=== PATIENT | male | born 1970 | race Caucasian/White ===

== ENCOUNTER 2017-05-11 18:21 | Emergency (ER) | payer OTHER ==
--- NOTE | 2017-05-11 18:45 | ER Document Report ---
ED Medical Screen (RME) - General Chief Complaint: Numbness of Face Stated Complaint: FACIAL NUMBNESS Time Seen by Provider: 05/11/17 18:45 Mode of Arrival: Ambulatory Information source: Patient Notes: 46-year-old man presenting to the ER with numbness since waking this morning. He does note that for the previous week and a half he was having intermittent tingling sensation in the right side of his face. He does have a family history for coronary artery disease. He does have a history of dyslipidemia and is on a cholesterol medicine. He denies smoking. - Related Data Allergies/Adverse Reactions: No Known Allergies Allergy (Unverified 05/11/17 18:24) Past Medical History - Past Medical History Cardiac Medical History: Reports: Hx Hypercholesterolemia Renal/ Medical History: Denies: Hx Peritoneal Dialysis GI Medical History: Reports: Hx Hiatal Hernia Physical Exam - Vital signs Vitals: Temp Pulse Resp BP Pulse Ox 98.4 F 83 16 145/96 H 97 05/11/17 18:26 05/11/17 18:26 05/11/17 18:26 05/11/17 18:26 05/11/17 18:26 Course - Vital Signs Vital signs: Temp Pulse Resp BP Pulse Ox 98.4 F 83 16 145/96 H 97 05/11/17 18:26 05/11/17 18:26 05/11/17 18:26 05/11/17 18:26 05/11/17 18:26 - Laboratory Result Diagrams: 05/11/17 18:52 05/11/17 18:52 Laboratory results interpreted by me: 05/11/17 18:52 BUN 24 H Doctor's Discharge - Discharge Clinical Impression: Facial numbness, Dental infection Condition: Stable Disposition: HOME, SELF-CARE Instructions: Dental Infection or Abscess ([facility]) Prescriptions: Amoxicillin 875 mg PO BID #20 tablet Referrals: SOLO MILES MD [NO LOCAL MD] - Follow up tomorrow
[2017-05-11 19:09] LABS: ABSOLUTE BASOPHILS # (AUTO) 0.1 10^3/uL (0.0-0.2); ABSOLUTE EOSINOPHILS # (AUTO) 0.2 10^3/uL (0.0-0.6); ABSOLUTE LYMPHOCYTES (AUTO) 2.8 10^3/uL (0.5-4.7); ABSOLUTE MONOCYTES (AUTO) 0.7 10^3/uL (0.1-1.4); ABSOLUTE NEUT (AUTO) 6.5 10^3/uL (1.7-8.2); BASOPHILS % (AUTO) 0.7 % (0-2); EOSINOPHILS % (AUTO) 2.1 % (0-6); HEMATOCRIT 45.1 % (37.9-51.0); HEMOGLOBIN 15.7 g/dL (13.5-17.0); LYMPHOCYTES % (AUTO) 26.8 % (13-45); MEAN CORPUSCULAR HEMOGLOBIN 31.3 pg (27.0-33.4); MEAN CORPUSCULAR HGB CONC 34.8 g/dL (32.0-36.0); MEAN CORPUSCULAR VOLUME 90 fl (80-97); MONOCYTES % (AUTO) 7.2 % (3-13); PLATELET COUNT 301 10^3/uL (150-450); RED BLOOD COUNT 5.02 10^6/uL (4.35-5.55); SEGMENTED NEUTROPHILS % (AUTO) 63.2 % (42-78); TOTAL CELLS COUNTED % (AUTO) 100 %; WHITE BLOOD COUNT 10.3 10^3/uL (4.0-10.5)
[2017-05-11 19:27] LABS: ALANINE AMINOTRANSFERASE 40 U/L (21-72); ALBUMIN 4.5 g/dL (3.5-5.0); ALKALINE PHOSPHATASE 70 U/L (38-126); ANION GAP 10 (5-19); ASPARTATE AMINO TRANSFERASE 19 U/L (17-59); BILIRUBIN,DIRECT 0.3 mg/dL (0.0-0.4); BILIRUBIN,TOTAL 0.4 mg/dL (0.2-1.3); BLOOD UREA NITROGEN 24 mg/dL (7-20); CALCIUM 10.2 mg/dL (8.4-10.2); CARBON DIOXIDE 28 mmol/L (22-30); CHLORIDE 106 mmol/L (98-107); CREATINE KINASE 85 U/L (55-170); GLUCOSE 86 mg/dL (75-110); POTASSIUM 4.2 mmol/L (3.6-5.0); SODIUM 144.3 mmol/L (137-145); TOTAL PROTEIN 7.4 g/dL (6.3-8.2)
--- NOTE | 2017-05-11 19:27 | RADIOLOGY REPORT (SQ) ---
EXAM DESCRIPTION: CHEST PA/LAT COMPLETED DATE/TIME: 05/11/2017 7:17 pm REASON FOR STUDY: facial numbness COMPARISON: None. EXAM PARAMETERS: NUMBER OF VIEWS: two views TECHNIQUE: Digital Frontal and Lateral radiographic views of the chest acquired. RADIATION DOSE: NA LIMITATIONS: none FINDINGS: LUNGS AND PLEURA: No opacities, masses or pneumothorax. No pleural effusion. MEDIASTINUM AND HILAR STRUCTURES: No masses or contour abnormalities. HEART AND VASCULAR STRUCTURES: Heart size is borderline. There is no evidence of failure. BONES: No acute findings. HARDWARE: None in the chest. OTHER: No other significant finding. IMPRESSION: Borderline cardiomegaly without failure. TECHNICAL DOCUMENTATION: JOB ID: [id number] [employer]- All Rights Reserved Reading location - IP/workstation name: [email or web address]
--- NOTE | 2017-05-11 19:31 | RADIOLOGY REPORT (SQ) ---
EXAM DESCRIPTION: CT HEAD WITHOUT COMPLETED DATE/TIME: 05/11/2017 7:23 pm REASON FOR STUDY: right facial numbness COMPARISON: None. TECHNIQUE: Axial images acquired through the brain without intravenous contrast. Images reviewed wi th bone, brain and subdural windows. Images stored on PACS. All CT scanners at this facility use dose modulation, iterative reconstruction, and/or weight based d osing when appropriate to reduce radiation dose to as low as reasonably achievable (ALARA). [facility]: Dose Right [facility]: CareDose [facility]: Dose Right [facility]: Teradose 4D [facility]: Smart [employer] RADIATION DOSE: CT Rad equipment meets quality standard of care and radiation dose reduction techniq ues were employed. CTDIvol: 64.6 mGy. DLP: 1163 mGy-cm. mGy. LIMITATIONS: None. FINDINGS: VENTRICLES: Normal size and contour. CEREBRUM: No masses. No hemorrhage. No midline shift. No evidence for acute infarction. Normal gra y/white matter differentiation. No areas of low density in the white matter. CEREBELLUM: No masses. No hemorrhage. No alteration of density. No evidence for acute infarction. EXTRAAXIAL SPACES: No fluid collections. No masses. ORBITS AND GLOBE: No intra- or extraconal masses. Normal contour of globe without masses. CALVARIUM: No fracture. PARANASAL SINUSES: No fluid or mucosal thickening. SOFT TISSUES: No mass or hematoma. OTHER: No other significant finding. IMPRESSION: NORMAL BRAIN CT WITHOUT CONTRAST. EVIDENCE OF ACUTE STROKE: NO. COMMENT: Quality ID # [id number]: Final reports with documentation of one or more dose reduction techniques (e.g., Automated exposure control, adjustment of the mA and/or kV according to patient size, use of iterative reconstruction technique) TECHNICAL DOCUMENTATION: JOB ID: [id number] [employer]- All Rights Reserved Reading location - IP/workstation name: [email or web address]
[2017-05-11 19:39] LABS: CREATINE KINASE MB 0.71 ng/mL (<4.55)
[2017-05-11 19:41] LABS: TROPONIN I < 0.012 ng/mL
--- NOTE | 2017-05-11 20:08 | ER Document Report ---
ED General - General Chief Complaint: Numbness of Face Stated Complaint: FACIAL NUMBNESS Time Seen by Provider: 05/11/17 18:45 Mode of Arrival: Ambulatory Information source: Patient Notes: 46-year-old male presents with complaints of odd sensation of his right cheek. Patient notes symptoms have been ongoing for the past week intermittently and then had tingling sensation today. Patient denies any other neurological deficits denies any numbness weakness anywhere else. He denies headache, patient does note that he has a tooth of the right upper that is supposed to have a Placed in the root canal. - HPI Onset: Last week Onset/Duration: Intermittent Quality of pain: No pain Severity: Mild Pain Level: Denies Associated symptoms: Other Exacerbated by: Denies Relieved by: Denies Similar symptoms previously: No Recently seen / treated by doctor: Yes - Patient sent in by [facility] - Related Data Allergies/Adverse Reactions: No Known Allergies Allergy (Unverified 05/11/17 18:24) Past Medical History - General Information source: Patient - Social History Smoking Status: Never Smoker Cigarette use (# per day): No Chew tobacco use (# tins/day): No Smoking Education Provided: No Family History: Reviewed & Not Pertinent Patient has suicidal ideation: No Patient has homicidal ideation: No - Past Medical History Cardiac Medical History: Reports: Hx Hypercholesterolemia Renal/ Medical History: Denies: Hx Peritoneal Dialysis GI Medical History: Reports: Hx Hiatal Hernia Review of Systems - Review of Systems Notes: REVIEW OF SYSTEMS: CONSTITUTIONAL : Denies fever, chills, or sweats. Denies recent illness. EENT: Denies eye, ear, throat, or mouth pain or symptoms. Denies nasal or sinus congestion or discharge. Denies throat, tongue, or mouth swelling or difficulty swallowing. CARDIOVASCULAR: Denies chest pain. Denies palpitations or racing or irregular heart beat. Denies ankle edema. RESPIRATORY: Denies cough, cold, or chest congestion. Denies shortness of breath, difficulty breathing, or wheezing. GASTROINTESTINAL: Denies abdominal pain or distention. Denies nausea, vomiting , or diarrhea. Denies blood in vomitus, stools, or per rectum. Denies black, tarry stools. Denies constipation. GENITOURINARY: Denies difficulty urinating, painful urination, burning, frequency, blood in urine, or discharge. MUSCULOSKELETAL: Denies back or neck pain or stiffness. Denies joint pain or swelling. SKIN: Denies rash, lesions or sores. HEMATOLOGIC : Denies easy bruising or bleeding. LYMPHATIC: Denies swollen, enlarged glands. NEUROLOGICAL: Right cheek paresthesia PSYCHIATRIC: Denies anxiety or stress. Denies depression, suicidal ideation, or homicidal ideation. ALL OTHER SYSTEMS REVIEWED AND NEGATIVE. Dictation was performed using [employer] voice recognition software PHYSICAL EXAMINATION: GENERAL: Well-appearing, well-nourished and in no acute distress. HEAD: Atraumatic, normocephalic. EYES: Pupils equal round and reactive to light, extraocular movements intact, sclera anicteric, conjunctiva are normal. ENT: Poor dentition teeth #3 4 5 NECK: Normal range of motion, supple without lymphadenopathy LUNGS: Breath sounds clear to auscultation bilaterally and equal. No wheezes rales or rhonchi. HEART: Regular rate and rhythm without murmurs ABDOMEN: Soft, nontender, nondistended abdomen. No guarding, no rebound. No masses appreciated. Musculoskeletal: Normal range of motion, no pitting or edema. No cyanosis. NEUROLOGICAL: Cranial nerves grossly intact. Normal speech, normal gait. Normal sensory, motor exams except for subjective paresthesia of the right cheek PSYCH: Normal mood, normal affect. SKIN: Warm, Dry, normal turgor, no rashes or lesions noted. Physical Exam - Vital signs Vitals: Temp Pulse Resp BP Pulse Ox 98.4 F 83 16 145/96 H 97 05/11/17 18:26 05/11/17 18:26 05/11/17 18:26 05/11/17 18:26 05/11/17 18:26 Course - Re-evaluation Re-evalutation: 05/11/17 23:[address] were performed, no Abnormality was noted, patient's presentation I believe is more consistent with nerve irritation given that his symptoms are specifically of the second branch of the trigeminal nerve, I have low suspicion for a specific clot that would cause this and it appears to be more likely due to a dental infection, nonetheless patient will be given neurology follow-up antibiotics and very strict return precautions After performing a Medical Screening Examination, I estimate there is LOW risk for a DEEP SPACE INFECTION (e.g., ABRAHAM'S ANGINA OR RETROPHARYNGEAL ABSCESS), MENINGITIS, INTRACRANIAL HEMORRHAGE, or AIRWAY COMPROMISE, thus I consider the discharge disposition reasonable. Also, there is no evidence or peritonitis, sepsis, or toxicity. I have reevaluated this patient multiple times and no significant life threatening changes are noted. The patient and I have discussed the diagnosis and risks, and we agree with discharging home with close follow-up with the understanding that symptoms and presentations can change. We also discussed returning to the Emergency Department immediately if new or worsening symptoms occur. We have discussed the symptoms which are most concerning (e.g., changing or worsening pain, trouble swallowing or breathing, neck stiffness or fever) that necessitate immediate return. - Vital Signs Vital signs: Temp Pulse Resp BP Pulse Ox 98.0 F 58 L 16 131/96 H 98 05/11/17 20:17 05/11/17 20:17 05/11/17 18:26 05/11/17 20:17 05/11/17 20:17 - Laboratory Result Diagrams: 05/11/17 18:52 05/11/17 18:52 Laboratory results interpreted by me: 05/11/17 18:52 BUN 24 H - Diagnostic Test Radiology reviewed: Image reviewed - no acute abnormality , report given to patient, Reports reviewed Discharge - Discharge Clinical Impression: Facial numbness, Dental infection Condition: Stable Disposition: HOME, SELF-CARE Instructions: Dental Infection or Abscess ([facility]) Prescriptions: Amoxicillin 875 mg PO BID #20 tablet Referrals: SOLO MILES MD [NO LOCAL MD] - Follow up tomorrow
[2017-05-11 20:21] VITALS: BP 131/96
--- NOTE | 2017-05-11 22:18 | EKG REPORT ---
SEVERITY:- OTHERWISE NORMAL ECG - SINUS ARRHYTHMIA, RATE 49-69 : Confirmed by: Corazon Bergman 11-May-2017 22:17:20
== END 2017-05-11 20:24 | disposition home or self-care (01) ==
LOC: ER 18:21
DX: K04.7 Periapical abscess without sinus (principal); R20.0 Anesthesia of skin; E78.00 Pure hypercholesterolemia, unspecified
CPT/HCPCS: 36415; 70450; 71046; 80053; 82550; 82553; 84484; 85025; 93005; 93010; 99285

== ENCOUNTER 2017-12-03 11:37 | Emergency (ER) | payer OTHER ==
--- NOTE | 2017-12-03 12:24 | ER Document Report ---
ED Medical Screen (RME) - General Chief Complaint: Abdominal Pain Stated Complaint: ABDOMINAL PAIN Time Seen by Provider: 12/03/17 12:23 Mode of Arrival: Wheelchair Information source: Patient - HPI Patient complains to provider of: abd pain Onset: This morning - pt with onset of diffuse abd pain starting this am. Last BM 2 days ago - Related Data Allergies/Adverse Reactions: morphine Adverse Reaction (Verified 12/03/17 12:19) Past Medical History - Past Medical History Cardiac Medical History: Reports: Hx Hypercholesterolemia Renal/ Medical History: Denies: Hx Peritoneal Dialysis GI Medical History: Reports: Hx Hiatal Hernia Physical Exam - Vital signs Vitals: Temp Pulse Resp BP Pulse Ox 98.4 F 69 18 129/88 H 96 12/03/17 12:12 12/03/17 12:12 12/03/17 12:12 12/03/17 12:12 12/03/17 12:12 Course - Vital Signs Vital signs: Temp Pulse Resp BP Pulse Ox 98.4 F 69 18 129/88 H 96 12/03/17 12:12 12/03/17 12:12 12/03/17 12:12 12/03/17 12:12 12/03/17 12:12
[2017-12-03 13:10] LABS: APPEARANCE,URINE CLOUDY; BILIRUBIN,URINE NEGATIVE (NEGATIVE); COLOR,URINE YELLOW; GLUCOSE, URINE NEGATIVE (NEGATIVE); KETONES,URINE NEGATIVE (NEGATIVE); LEUKOCYTE ESTERASE,URINE NEGATIVE (NEGATIVE); NITRITE,URINE NEGATIVE (NEGATIVE); PROTEIN,URINE 30 mg/dL (NEGATIVE); URINE SPECIFIC GRAVITY 1.017; UROBILINOGEN,URINE NEGATIVE mg/dL (<2.0)
[2017-12-03 13:22] LABS: ABSOLUTE LYMPHOCYTES (AUTO) 1.1 10^3/uL (0.5-4.7); ABSOLUTE MONOCYTES (AUTO) 0.6 10^3/uL (0.1-1.4); ABSOLUTE NEUT (AUTO) 11.5 10^3/uL (1.7-8.2); BASOPHILS % (AUTO) 0.3 % (0-2); EOSINOPHILS % (AUTO) 0.3 % (0-6); HEMATOCRIT 47.2 % (37.9-51.0); HEMOGLOBIN 16.1 g/dL (13.5-17.0); LYMPHOCYTES % (AUTO) 8.3 % (13-45); MEAN CORPUSCULAR HEMOGLOBIN 30.9 pg (27.0-33.4); MEAN CORPUSCULAR HGB CONC 34.1 g/dL (32.0-36.0); MEAN CORPUSCULAR VOLUME 91 fl (80-97); MONOCYTES % (AUTO) 4.6 % (3-13); PLATELET COUNT 296 10^3/uL (150-450); RED BLOOD COUNT 5.21 10^6/uL (4.35-5.55); RED CELL DISTRIBUTION WIDTH 13.4 % (11.5-14.0); SEGMENTED NEUTROPHILS % (AUTO) 86.5 % (42-78); TOTAL CELLS COUNTED % (AUTO) 100 %; WHITE BLOOD COUNT 13.3 10^3/uL (4.0-10.5)
[2017-12-03 13:46] LABS: ALANINE AMINOTRANSFERASE 33 U/L (21-72); ALBUMIN 4.7 g/dL (3.5-5.0); ALKALINE PHOSPHATASE 59 U/L (38-126); ANION GAP 10 (5-19); ASPARTATE AMINO TRANSFERASE 19 U/L (17-59); BILIRUBIN,DIRECT 0.2 mg/dL (0.0-0.4); BILIRUBIN,TOTAL 0.8 mg/dL (0.2-1.3); BLOOD UREA NITROGEN 20 mg/dL (7-20); CALCIUM 10.1 mg/dL (8.4-10.2); CARBON DIOXIDE 28 mmol/L (22-30); CHLORIDE 105 mmol/L (98-107); GLUCOSE 106 mg/dL (75-110); LIPASE 33.2 U/L (23-300); POTASSIUM 4.7 mmol/L (3.6-5.0); SODIUM 142.9 mmol/L (137-145); TOTAL PROTEIN 7.6 g/dL (6.3-8.2)
--- NOTE | 2017-12-03 14:42 | ER Document Report ---
ED GI/ - General Chief Complaint: Abdominal Pain Stated Complaint: ABDOMINAL PAIN Time Seen by Provider: 12/03/17 12:23 Mode of Arrival: Wheelchair Notes: 47-year-old male to the emergency department chief complaint of lower abdominal pain on and off for several days. Patient states that he has a hernia that he knows is there and has been present for quite some time. Easily reducible. Sometimes it is not easy to push him but today it is easy to push back in. Has intermittent constipation. Was seen at [facility] and sent here for further evaluation. Patient denies any fever, chills, sweats. Has not eaten all day and is hungry at this time. - HPI Patient complains to provider of: Abdominal pain - Related Data Allergies/Adverse Reactions: morphine Adverse Reaction (Verified 12/03/17 12:19) Past Medical History - General Information source: Patient - Social History Smoking Status: Never Smoker Chew tobacco use (# tins/day): No Frequency of alcohol use: Rare Drug Abuse: None Lives with: Family Family History: Reviewed & Not Pertinent Patient has suicidal ideation: No Patient has homicidal ideation: No - Past Medical History Cardiac Medical History: Reports: Hx Hypercholesterolemia, Hx Hypertension - borderline Pulmonary Medical History: Reports: Hx Asthma Renal/ Medical History: Denies: Hx Peritoneal Dialysis GI Medical History: Reports: Hx Hiatal Hernia Past Surgical History: Reports: Hx Abdominal Surgery - hernia repair, Hx Oral Surgery - tooth extraction Review of Systems - Review of Systems Notes: Constitutional: denies: Chills, Diaphoresis, Fever, Malaise, Weakness EENT: denies: Eye discharge, Blurred vision, Tearing, Double vision, Nose congestion, Nose discharge, Throat swelling, Mouth pain Cardiovascular: denies: Palpitations, Heart racing, Orthopnea, Dyspnea, Chest pain Respiratory: denies: Cough, Hurts to breathe, Wheezing, Shortness of breath Gastrointestinal: Complains of abdominal pain, constipation and some intermittent flank pain on occasions. Genitourinary: denies: Burning, Dysuria, Discharge, Frequency,. Does complain of some bilateral flank pain, Hematuria Musculoskeletal: denies: Joint pain, Joint swelling, Muscle pain, Muscle stiffness, back pain Hematologic/Lymphatic: denies: Anemia, Easy bleeding, Easy bruising, Blood clots Neurological/Psychological: denies: Confusion, Dementia, Depression, Loss of consciousness Skin: No lesions, no masses, no skin breakdown, no abscesses Physical Exam - Vital signs Vitals: Temp Pulse Resp BP Pulse Ox 98.4 F 69 18 129/88 H 96 12/03/17 12:12 12/03/17 12:12 12/03/17 12:12 12/03/17 12:12 12/03/17 12:12 Interpretation: Normal - General General appearance: Appears well, Alert - HEENT Head: Normocephalic, Atraumatic Eyes: Normal Pupils: PERRL - Respiratory Respiratory status: No respiratory distress Chest status: Nontender Breath sounds: Normal Chest palpation: Normal - Cardiovascular Rhythm: Regular Heart sounds: Normal auscultation Murmur: No - Abdominal Inspection: Normal Distension: No distension Bowel sounds: Normal Tenderness: Nontender Organomegaly: No organomegaly Notes: There is a midline ventral hernia which is easily reducible. - Back Back: Normal, Nontender - Extremities General upper extremity: Normal inspection, Nontender, Normal color, Normal ROM , Normal temperature General lower extremity: Normal inspection, Nontender, Normal color, Normal ROM , Normal temperature, Normal weight bearing. No: Mary Jo's sign - Neurological Neuro grossly intact: Yes Cognition: Normal Orientation: AAOx4 Janina Coma Scale Eye Opening: Spontaneous Janina Coma Scale Verbal: Oriented Belcher Coma Scale Motor: Obeys Commands Janina Coma Scale Total: 15 Speech: Normal Motor strength normal: LUE, RUE, LLE, RLE Sensory: Normal - Psychological Associated symptoms: Normal affect, Normal mood - Skin Skin Temperature: Warm Skin Moisture: Dry Skin Color: Normal Course - Re-evaluation Re-evalutation: 12/03/17 15:56 Laboratory 12/03/17 12/03/17 12/03/17 12:00 13:00 13:00 WBC 13.3 H RBC 5.21 Hgb 16.1 Hct 47.2 MCV 91 MCH 30.9 MCHC 34.1 RDW 13.4 Plt Count 296 Seg Neutrophils % 86.5 H Lymphocytes % 8.3 L Monocytes % 4.6 Eosinophils % 0.3 Basophils % 0.3 Absolute Neutrophils 11.5 H Absolute Lymphocytes 1.1 Absolute Monocytes 0.6 Absolute Eosinophils 0.0 Absolute Basophils 0.0 Sodium 142.9 Potassium 4.7 Chloride 105 Carbon Dioxide 28 Anion Gap 10 BUN 20 Creatinine 0.83 Est GFR ( Amer) > 60 Est GFR (Non-Af Amer) > 60 Glucose 106 Calcium 10.1 Total Bilirubin 0.8 Direct Bilirubin 0.2 Neonat Total Bilirubin Not Reportable Neonat Direct Bilirubin Not Reportable Neonat Indirect Bili Not Reportable AST 19 ALT 33 Alkaline Phosphatase 59 Total Protein 7.6 Albumin 4.7 Lipase 33.2 Urine Color YELLOW Urine Appearance CLOUDY Urine pH 5.0 Ur Specific [facility] 1.017 Urine Protein 30 H Urine Glucose (UA) NEGATIVE Urine Ketones NEGATIVE Urine Blood LARGE H Urine Nitrite NEGATIVE Urine Bilirubin NEGATIVE Urine Urobilinogen NEGATIVE Ur Leukocyte Esterase NEGATIVE Urine WBC (Auto) 4 Urine RBC (Auto) >182 Urine Bacteria (Auto) TRACE Urine Mucus (Auto) MANY Urine Ascorbic Acid NEGATIVE Abdomen/Pelvis CT 12/03/17 14:42 IMPRESSION: The obstructing 2.6 mm in diameter distal ureteric calculus on the left. No renal calculi are identified. Large ventral hernia containing fat just above the level of the umbilicus in the midline as noted above. Other findings as noted above 12/03/17 15:59 Well-appearing male in no significant distress. Has a 2.6 mm kidney stone in the distal ureteral area. Does have a large ventral hernia containing fat just above the level of the umbilicus but this is easily reducible. Will give follow -up information for urology and surgery. Have cultured the urine. Nothing further at this time in my opinion. Patient is well enough to go home. Patient was advised in the event that symptoms get worse, develops fever, worsening abdominal pain, worsening urinary symptoms he should return immediately. - Vital Signs Vital signs: Temp Pulse Resp BP Pulse Ox 97.6 F 59 L 20 136/73 H 96 12/03/17 14:20 12/03/17 14:20 12/03/17 14:20 12/03/17 14:20 12/03/17 14:20 - Laboratory Result Diagrams: 12/03/17 13:00 12/03/17 13:00 Laboratory results interpreted by me: 12/03/17 12/03/17 12:00 13:00 WBC 13.3 H Seg Neutrophils % 86.5 H Lymphocytes % 8.3 L Absolute Neutrophils 11.5 H Urine Protein 30 H Urine Blood LARGE H Discharge - Discharge Clinical Impression: Kidney stone on left side Abdominal hernia Qualifiers: Hernia type: ventral Obstruction and gangrene presence: without obstruction or gangrene Qualified Code(s): K43.9 - Ventral hernia without obstruction or gangrene Condition: Good Disposition: HOME, SELF-CARE Instructions: Umbilical Hernia ([facility]), Kidney Stone ([facility]) Additional Instructions: It appears that you do have a hernia as well as a kidney stone on the left. The kidney stone looks like it is of appropriate size so that it will pass on its own. I am going to give you some medications to help it pass. You will need to follow-up with urology as well as general surgery. In the event that the hernia becomes impossible to push back in or you develop severe abdominal pain associated with the hernia, fever, vomiting or any other symptoms please return immediately for repeat evaluation within the next 24-48 hours. Prescriptions: Ibuprofen [Motrin 800 mg Tablet] 800 mg PO Q8H PRN 10 Days #30 tab PRN Reason: For Pain Scale 3-4 Ondansetron [Zofran Odt 4 mg Tablet] 1 - 2 tab PO Q4H PRN #15 tab.rapdis PRN Reason: For Nausea/Vomiting Oxycodone HCl/Acetaminophen [Percocet 5-325 mg Tablet] 1 tab PO Q6H PRN 5 Days # 15 tablet PRN Reason: For Breakthrough Pain Tamsulosin HCl [Flomax 0.4 mg Cap.sr] 0.4 mg PO DAILY #7 cap.sr.24h Forms: Return to Work Referrals: SERGIO BURGER MD [Primary Care Provider] - Follow up as needed [facility] [Provider Group] - Follow up in 3-5 days PAMELA MOLINA MD [ACTIVE STAFF] - Follow up in 1 week
--- NOTE | 2017-12-03 15:40 | RADIOLOGY REPORT (SQ) ---
EXAM DESCRIPTION: CT ABD/PELVIS NO ORAL OR IV COMPLETED DATE/TIME: 12/03/2017 3:03 pm REASON FOR STUDY: lower abd pain COMPARISON: None. TECHNIQUE: CT scan of the abdomen and pelvis performed without intravenous or oral contrast. Images reviewed with lung, soft tissue, and bone windows. Reconstructed coronal and sagittal MPR images revi ewed. All images stored on PACS. All CT scanners at this facility use dose modulation, iterative reconstruction, and/or weight based d osing when appropriate to reduce radiation dose to as low as reasonably achievable (ALARA). [facility]: Dose Right [facility]: CareDose [facility]: Dose Right [facility]: Teradose 4D [facility]: Smart [facility]2 RADIATION DOSE: CT Rad equipment meets quality standard of care and radiation dose reduction techniq ues were employed. CTDIvol: 11.6 mGy. DLP: 677 mGy-cm.mGy. LIMITATIONS: None. FINDINGS: LOWER CHEST: No significant findings. No nodules or infiltrates. NON-CONTRASTED LIVER, SPLEEN, ADRENALS: Evaluation limited by lack of IV contrast. No identified sign ificant masses. PANCREAS: No masses. No peripancreatic inflammatory changes. GALLBLADDER: No identified stones by CT criteria. No inflammatory changes to suggest cholecystitis. RIGHT KIDNEY AND URETER: No suspicious masses. Assessment limited by lack of IV contrast. No signif icant calcifications. No hydronephrosis or hydroureter. LEFT KIDNEY AND URETER: No suspicious masses. Assessment limited by lack of IV contrast. No definit e renal calculi are identified. An obstructing calculus is identified in the distal left ureter best seen on image number 76 measuring 2.6 mm. There is hydronephrosis of the left kidney and mild dila tation of the left ureter proximal to this level. AORTA AND RETROPERITONEUM: No aneurysm. No retroperitoneal masses or adenopathy. BOWEL AND PERITONEAL CAVITY: No obvious masses or inflammatory changes. No free fluid. APPENDIX: Normal. PELVIS, BLADDER, AND ABDOMINAL WALL:No abnormal masses. No free fluid. Bladder normal. A large ventr al hernia containing fat is identified in the mid abdomen in the midline just above the level of the umbilicus. There are edematous or inflammatory changes in the adjacent intra-abdominal mesenteric fa t. BONES: No significant findings. OTHER: No other significant finding. IMPRESSION: The obstructing 2.6 mm in diameter distal ureteric calculus on the left. No renal calcu li are identified. Large ventral hernia containing fat just above the level of the umbilicus in the midline as noted above. Other findings as noted above COMMENT: Quality ID # [id number]: Final reports with documentation of one or more dose reduction techniques (e.g., Automated exposure control, adjustment of the mA and/or kV according to patient size, use of iterative reconstruction technique) TECHNICAL DOCUMENTATION: JOB ID: [id number] [employer]- All Rights Reserved Reading location - IP/workstation name: [email or web address]
[2017-12-03] MEDS ORDERED: ONDANSETRON 4 MG TAB.RAPDIS PO ONE (15:57)
[2017-12-03] MEDS ORDERED: TAMSULOSIN HCL 0.4 MG CAP.SR.24H PO ONE (15:57)
[2017-12-03] MEDS ORDERED: IBUPROFEN 800 MG TABLET PO ONE (15:57)
[2017-12-03 16:40] VITALS: BP 134/99
== END 2017-12-03 16:42 | disposition home or self-care (01) ==
LOC: ER 11:37
DX: N13.2 Hydronephrosis with renal and ureteral calculous obstruction (principal); K43.9 Ventral hernia without obstruction or gangrene; K59.00 Constipation, unspecified
CPT/HCPCS: 99284; 36415; 87086; 83690; 85025; 80053; 81001; 74176; S0119